=== PATIENT | male | born 1960 | race Caucasian/White ===

== ENCOUNTER 2017-03-24 13:27 | Inpatient (IN) | payer BC, MEDICAID ==
[~2017-03-24] VITALS: Ht 170.2 cm; Wt 31.8 kg
[~2017-03-24 13:27] MED LIST: COL100 PO; ELA10 PO; IBUPROFEN400 MG PO; LAC30L PO; MOT800 PO
[2017-03-24] MEDS ORDERED: DILAUDID2 MG PO (21:17)
[2017-03-24] MEDS ORDERED: EPZICOM1 TAB (21:17)
[2017-03-24 21:52] VITALS: BP 66/48
== END 2017-03-24 23:40 | disposition expired | DRG 436 ==
LOC: ED 13:27 → DU 20:41 → MU 20:41 → DU 21:04
PROVIDERS: ADMIT Family Medicine
PROC: 05HM33Z Insertion of Infusion Device into Right Internal Jugular Vein, Percutaneous Approach (ICD-10-PCS; principal; 2017-03-24)
DX: C22.0 Liver cell carcinoma (principal); R64 Cachexia; Z68.1 Body mass index [BMI] 19.9 or less, adult; Z66 Do not resuscitate; B18.2 Chronic viral hepatitis C; Z79.899 Other long term (current) drug therapy; Z88.1 Allergy status to other antibiotic agents
CPT/HCPCS: 83880; J1642; J2270; Q0092